=== PATIENT | female | born 1955 | race Native Hawaiian/Other Pacific Islander ===

== ENCOUNTER 2022-04-06 21:14 | Emergency (ER) | payer MEDICARE | END 2022-04-06 21:45 | disposition left against medical advice (07) | LOC: ED 21:14 | DX: M54.9 Dorsalgia, unspecified (principal); R11.10 Vomiting, unspecified; R55 Syncope and collapse; Z53.21 Procedure and treatment not carried out due to patient leaving prior to being seen by health care provider ==